=== PATIENT | male | born 1960 | race Caucasian/White ===

== ENCOUNTER → 2022-07-03 11:58 | Outpatient (BNVA) | payer OTHER, SELFPAY | PROVIDERS: Family Provider Nurse Practitioner Family; PCP Nurse Practitioner Family; Visit Provider Emergency Medicine | DX: J02.9 Acute pharyngitis, unspecified (principal); R68.89 Other general symptoms and signs; U07.1 COVID-19 | CPT/HCPCS: 87426; 87880 ==